=== PATIENT | male | born 1955 | race Caucasian/White ===

== ENCOUNTER 2018-04-09 10:51 | Emergency (ER) | payer OTHER ==
[2018-04-09] MEDS ORDERED: AMOX/CLAV 875 MG/125 MG TABLET PO STA (14:27)
[2018-04-09] MEDS ORDERED: ACETAMINOPHEN 325 MG TABLET PO STA (14:27)
--- NOTE | 2018-04-09 14:30 | ED Physician Documentation ---
History of Present Illness - Stated complaint Stated Complaint: DOG BITE/R HAND - Chief complaint Chief Complaint: Wound - Additonal information Additional information: hx from pt healthy immunized 62 male bit on right hand by a healthy immunized dog he met being walked on the street Review of Systems Constitutional: denies: Fever Skin: reports: Bite / sting PD PAST MEDICAL HISTORY - Past Medical History Past Medical History: Yes Cardiovascular: Hypertension Musculoskeletal: Other Other Past Medical History: Fx neck - Past Surgical History Past Surgical History: Yes General: Appendectomy - Present Medications Home Medications: Ambulatory Orders Medication Instructions Recorded Confirmed Amox/Clav 875/125 [Augmentin] 1 each PO Q12H #9 tablet 04/09/18 - Allergies Allergies/Adverse Reactions: Allergies Allergy/AdvReac Type Severity Reaction Status Date / Time No Known Drug Allergies Allergy Verified 04/09/18 11:15 - Social History Does the pt smoke?: No Smoking Status: Never smoker Does the pt drink ETOH?: Yes ETOH Use: Liquor Does the pt have substance abuse?: No - Immunizations Immunizations are current?: Yes PD ED PE NORMAL - Vitals Vital signs reviewed: Yes - Extremities Extremities: Other (R hand with punctures to thenar region palmar and dorsal, no sig bony TTP, MSV intact, no evidence of tendon involvement) - Neuro Neuro: Alert and oriented X 3, No motor deficit, No sensory deficit Results - Vitals Vitals: Vital Signs - 24 hr 04/09/18 11:12 Temperature 36.5 C Heart Rate 102 H Respiratory 20 Rate Blood Pressure 129/65 O2 Saturation 96 Oxygen O2 Source Room air Departure - Departure Disposition: 01 Home, Self Care Clinical Impression: Animal bite with open wound Condition: Good Instructions: ED Bite Animal General Prescriptions: Amox/Clav 875/125 [Augmentin] 1 each PO Q12H #9 tablet Comments: Take the antibiotics as prescribed Tylenol for pain Ice wrapped in a towel or sock for twenty minutes at a time to decrease swelling Wash wounds carefully and then apply fresh antibiotic ointment twice a day until healed
[2018-04-09] MEDS ORDERED: BACITRACIN OINT TOP STA (14:31)
[2018-04-09 14:46] VITALS: BP 128/66
== END 2018-04-09 14:45 | disposition home or self-care (01) ==
LOC: ED 10:51
DX: S61.451A Open bite of right hand, initial encounter (principal); W54.0XXA Bitten by dog, initial encounter; Y93.01 Activity, walking, marching and hiking; Y92.410 Unspecified street and highway as the place of occurrence of the external cause; I10 Essential (primary) hypertension
CPT/HCPCS: 99282; 99283; A9270

== ENCOUNTER 2022-08-24 12:38 | Outpatient (CLI) | payer OTHER | END 2022-08-24 12:39 | disposition home or self-care (01) | LOC: CAM 12:38 | PROVIDERS: ATTEND Nurse Practitioner | DX: M54.50 Low back pain, unspecified (principal); R10.2 Pelvic and perineal pain | CPT/HCPCS: 97813; 97814 ==

== ENCOUNTER 2022-09-07 16:12 | Outpatient (CLI) | payer OTHER | END 2022-09-07 16:13 | disposition home or self-care (01) | LOC: CAM 16:12 | PROVIDERS: ATTEND Nurse Practitioner | DX: M54.59 Other low back pain (principal) | CPT/HCPCS: 97813; 97814 ==

== ENCOUNTER 2022-09-16 09:33 | Outpatient (CLI) | payer MEDICARE, OTHER ==
[2022-09-16 10:11] VITALS: BP 122/64
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
--- NOTE | 2022-09-16 10:12 | Sleep Patient Instructions ---
Sleep Center Visit Summary - Patient Visit Information Reason for Visit: Initial visit for evaluation of sleep disordered breathing and other sleep issues. - Patient Instructions Instructions Attached: Sleep Study, Sleep Clinic Visit, Sleep Study Home Monitor Additional Instructions: You will be completing a sleep study, either an in-lab polysomnography (PSG) or home sleep study (HST). You will follow-up in the sleep care office after the sleep study is completed to hear the results and talk about therapy, if needed. You will be called by office staff to schedule this appointment but you may contact us with any questions. - Clinic Information Contact: [facility] [address] [place] [address] [email or web address] T: [phone]
== END 2022-09-16 09:34 | disposition home or self-care (01) ==
LOC: SC 09:33
PROVIDERS: ATTEND Nurse Practitioner Family
DX: R06.83 Snoring (principal); G47.8 Other sleep disorders; R06.81 Apnea, not elsewhere classified; I10 Essential (primary) hypertension; E66.9 Obesity, unspecified; Z68.30 Body mass index [BMI] 30.0-30.9, adult
CPT/HCPCS: 99203; G0463; 99212

== ENCOUNTER 2022-09-21 15:44 | Outpatient (CLI) | payer OTHER | END 2022-09-21 15:45 | disposition home or self-care (01) | LOC: CAM 15:44 | PROVIDERS: ATTEND Nurse Practitioner | DX: M54.50 Low back pain, unspecified (principal); R10.2 Pelvic and perineal pain | CPT/HCPCS: 97813; 97814 ==

== ENCOUNTER 2022-10-01 20:46 | Outpatient (CLI) | payer MEDICARE, OTHER | END 2022-10-01 20:47 | disposition home or self-care (01) | LOC: SC 20:46 | PROVIDERS: ATTEND Nurse Practitioner Family | DX: G47.33 Obstructive sleep apnea (adult) (pediatric) (principal); G47.61 Periodic limb movement disorder; E66.9 Obesity, unspecified; Z68.31 Body mass index [BMI] 31.0-31.9, adult | CPT/HCPCS: 95810 ==

== ENCOUNTER 2022-10-05 15:42 | Outpatient (CLI) | payer OTHER | END 2022-10-05 15:43 | disposition home or self-care (01) | LOC: CAM 15:42 | PROVIDERS: ATTEND Nurse Practitioner | DX: M54.50 Low back pain, unspecified (principal); R10.2 Pelvic and perineal pain | CPT/HCPCS: 97810; 97811 ==

== ENCOUNTER 2022-10-07 08:37 | Outpatient (CLI) | payer MEDICARE, OTHER ==
--- NOTE | 2022-10-07 09:05 | Sleep Patient Instructions ---
Sleep Center Visit Summary - Patient Visit Information Reason for Visit: Sleep study followup - Patient Instructions Instructions Attached: Apnea Sleep Mouthpieces Additional Instructions: You have opted for an oral mandibular appliance to control your sleep apnea. A list of certified dentists in the area was provided for you to find a dentist to have your oral appliance made. Once you have the device, please call and make a follow up appointment. We need to see you after you have been using the appliance for a month. We will evaluate your response to therapy and order a follow up sleep study to check efficiency of treatment. Please follow up in the sleep care office one month after obtaining oral device. - Clinic Information Contact: [facility] [address] [place] [address] [email or web address] T: [phone]
[2022-10-07 09:10] VITALS: BP 128/76
--- NOTE | 2022-10-07 09:10 | SLEEP CARE CONSULTATION ---
Information from patient questionnaire entered by Che Giordano. I have reviewed and concur with the information entered by Che Giordano. This document represents the service I personally performed and the decisions made by , Celestina Clayton ARNP. History of Present Illness Service Date and Time: 10/07/2022 0837 Initial [place] Sleepiness Scale score: 4 (09/15/22) Current [place] Sleepiness Scale score: 4 (10/07/22) Additional HPI information: NABEEL ANDRADE returns for follow up and results of the recently performed polysomnography. He was found to have mild obstructive sleep apnea with an AHI of 11.7 and severe PLMs that contributed to fragmentation of his sleep. I explained the pathophysiology behind obstructive sleep apnea. We then spent quite a bit of time discussing different treatment options. For mild obstructive sleep apnea, surgery and oral appliance are alternatives to nasal CPAP therapy but in moderate or severe cases, nasal CPAP is the most effective and reliable treatment. I reviewed the impact of weight changes on sleep apnea and strongly recommended losing weight. After some discussion, the patient opted to go with the oral appliance to control his sleep apnea. Patient counseled not drink alcohol less than 4 hours before bedtime as it can increase snoring and apnea. Patient was cautioned about risks of drowsy driving until sleepiness symptoms resolve. Patient denies drowsy driving. Sleep Study - Results Type of Sleep Study: Polysomnography (COMPLETED 10/01/22) Prior sleep studies: No Polysomnography/Home Sleep Study results: IMPRESSION: The quality of the study is good. The patient had normal sleep efficiency. The sleep architecture was abnormal for sleep fragmentation and reduced amount of time spent in slow wave sleep (N3). Respiratory monitoring showed mild obstructive sleep apnea-hypopnea (AHI = 11.7) associated with frequent arousals, oxyhemoglobin desaturation and mild hypoxia (mari oxygen saturation of 84%). The respiratory events occurred mainly during REM sleep. The patient did not sleep supine during this study. Snore was very loud in intensity. There was severe periodic leg movement of sleep contributing to the sleep fragmentation. Cardiac rhythm was sinus rhythm without significant arrhythmia with frequent premature atrial contractions. No abnormal behavior (parasomnia) observed during the night. Allergies and Home Medications Known drug allergies: No Drug allergies reviewed: Yes Home medication list reviewed: Yes (no changes) Allergy and home medication list: Allergies No Known Drug Allergies Allergy (Verified 10/06/22 14:46) Review of Systems Review of systems same as previous: Yes (no changes) Physical Exam Vital signs obtained and entered by: CHE Pierson MA Blood Pressure: 128/76 (LEFT ARM) Cuff size: long Heart Rate: 74 O2 Saturation: 97 Height: 6 ft Weight: 228 lb 6.4 oz Body Mass Index: 30.9 BMI Classification: Obese Impression and Plan 1. Obstructive Sleep Apnea-Hypopnea Syndrome, mild, with lowest oxygen saturation of 84%. Obviously this is the cause of the patients symptoms of unrefreshed sleep, and excessive daytime sleepiness. Positive pressure therapy could benefit hypertension. As mentioned above, the patient chose an oral appliance to treat their apnea. A 3 month follow up will be made to see if appliance has reduced symptoms. If so, another polysomnography will be ordered with use of the oral appliance to check efficacy in reducing apnea. He voiced understanding and agreement. 2. Periodic limb movement, severe, that did contribute to fragmentation of [facility] sleep. Periodic limb movement of sleep (PLMS) is characterized by episodes of repetitive limb movements that occur during sleep and usually involve the lower limbs. The etiology is unknown. Caffeine can aggravate PLMS and should be avoided. Sleep hygiene methods can also improve sleep as well as lifestyle changes such as regular exercise. Patient was advised that further evaluation is indicated and to follow up with primary. 3. Hypoxemia, mild, with a mari oxygen saturation of 84% and 6 minutes spent under 90%. His baseline oxygen saturation was normal with an average oxygen saturation of 92%. * Oral appliance. * Attempt to lose weight. * Avoid alcohol consumption near bedtime. * The patient is again cautioned about driving until sleepiness completely resolves. * Return one month after oral appliance obtained. I will assess response to therapy at that time. Counseling Topics: Weight loss health impact Prescriptions: Other (Oral Appliance) Visit Type: In Office Time Spent with Patient (minutes): 21 Provider Statement: I spent 100% of the Face to Face Visit with the patient with greater than 50% spent counseling the patient and coordination of care.
== END 2022-10-07 08:38 | disposition home or self-care (01) ==
LOC: SC 08:37
PROVIDERS: ATTEND Nurse Practitioner Family
DX: G47.33 Obstructive sleep apnea (adult) (pediatric) (principal); G47.61 Periodic limb movement disorder; R09.02 Hypoxemia; E66.9 Obesity, unspecified; Z68.30 Body mass index [BMI] 30.0-30.9, adult
CPT/HCPCS: 99213; G0463; 99212

== ENCOUNTER 2022-10-19 13:00 | Outpatient (CLI) | payer OTHER | END 2022-10-19 13:01 | disposition home or self-care (01) | LOC: CAM 13:00 | PROVIDERS: ATTEND Nurse Practitioner | DX: M54.50 Low back pain, unspecified (principal); R10.2 Pelvic and perineal pain | CPT/HCPCS: 97810; 97811 ==

== ENCOUNTER 2023-02-15 15:44 | Outpatient (CLI) | payer OTHER | END 2023-02-15 15:45 | disposition home or self-care (01) | LOC: CAM 15:44 | PROVIDERS: ATTEND Nurse Practitioner | DX: M54.59 Other low back pain (principal) | CPT/HCPCS: 97810; 97811 ==

== ENCOUNTER 2023-03-15 13:10 | Outpatient (CLI) | payer OTHER | END 2023-03-15 13:11 | disposition home or self-care (01) | LOC: CAM 13:10 | PROVIDERS: ATTEND Nurse Practitioner | DX: M54.50 Low back pain, unspecified (principal); R10.2 Pelvic and perineal pain | CPT/HCPCS: 97810; 97811 ==

== ENCOUNTER 2023-03-22 15:27 | Outpatient (CLI) | payer OTHER | END 2023-03-22 15:28 | disposition home or self-care (01) | LOC: CAM 15:27 | PROVIDERS: ATTEND Nurse Practitioner | DX: M54.50 Low back pain, unspecified (principal); R10.2 Pelvic and perineal pain | CPT/HCPCS: 97810; 97811 ==

== ENCOUNTER 2023-07-05 15:41 | Outpatient (CLI) | payer OTHER | END 2023-07-05 15:42 | disposition home or self-care (01) | LOC: CAM 15:41 | PROVIDERS: ATTEND Nurse Practitioner | DX: M54.59 Other low back pain (principal) | CPT/HCPCS: 97810; 97811 ==

== ENCOUNTER 2023-07-12 15:37 | Outpatient (CLI) | payer OTHER | END 2023-07-12 15:38 | disposition home or self-care (01) | LOC: CAM 15:37 | PROVIDERS: ATTEND Nurse Practitioner | DX: M54.59 Other low back pain (principal) | CPT/HCPCS: 97810; 97811 ==

== ENCOUNTER 2023-07-19 15:37 | Outpatient (CLI) | payer OTHER | END 2023-07-19 15:38 | disposition home or self-care (01) | LOC: CAM 15:37 | PROVIDERS: ATTEND Nurse Practitioner | DX: M54.59 Other low back pain (principal) | CPT/HCPCS: 97813; 97814 ==

== ENCOUNTER 2023-07-26 15:39 | Outpatient (CLI) | payer OTHER | END 2023-07-26 15:40 | disposition home or self-care (01) | LOC: CAM 15:39 | PROVIDERS: ATTEND Nurse Practitioner | DX: M54.59 Other low back pain (principal) | CPT/HCPCS: 97813; 97814 ==

== ENCOUNTER 2023-08-02 15:36 | Outpatient (CLI) | payer OTHER | END 2023-08-02 15:37 | disposition home or self-care (01) | LOC: CAM 15:36 | PROVIDERS: ATTEND Nurse Practitioner | DX: M54.59 Other low back pain (principal) | CPT/HCPCS: 97813; 97814 ==

== ENCOUNTER 2023-08-09 15:41 | Outpatient (CLI) | payer OTHER | END 2023-08-09 15:42 | disposition home or self-care (01) | LOC: CAM 15:41 | PROVIDERS: ATTEND Nurse Practitioner | DX: M54.50 Low back pain, unspecified (principal) | CPT/HCPCS: 97810; 97811 ==

== ENCOUNTER 2023-08-16 15:35 | Outpatient (CLI) | payer OTHER | END 2023-08-16 15:36 | disposition home or self-care (01) | LOC: CAM 15:35 | PROVIDERS: ATTEND Nurse Practitioner | DX: M54.50 Low back pain, unspecified (principal) | CPT/HCPCS: 97810; 97811 ==

== ENCOUNTER 2023-08-23 15:36 | Outpatient (CLI) | payer OTHER | END 2023-08-23 15:37 | disposition home or self-care (01) | LOC: CAM 15:36 | PROVIDERS: ATTEND Nurse Practitioner | DX: M54.59 Other low back pain (principal) | CPT/HCPCS: 97813; 97814 ==